=== PATIENT | female | born 1990 | race Caucasian/White ===

== ENCOUNTER 2016-09-10 17:13 | Emergency (ER) | payer OTHER ==
[~2016-09-10] VITALS: Ht 167.6 cm; Wt 100.0 kg
[2016-09-10 17:34] VITALS: BP 129/72; PULSE 87; O2SAT 99
--- NOTE | 2016-09-10 18:10 | ED.REPORT ---
HPI-Psychiatric Illness Date of Service Sep 10, 2016 ED Provider: Keith Ovalle MD History of Present Illness: 26F presents c/o SI (w/plan to overdose on Vicodin or driving car into pole or [place]) that has been more persistant (although now doing better and willing to contract for safety). Sent by Urgent Care. Pt is a 26 year old female with a history of depression, borderline personality disorder, self harmed, and suicidal attempts who presents to the ED complaining of suicidal ideations onset 2 days ago. She c/o associated insomnia (3 hours and less). She denies visual and auditory hallucinations. The pt presented to earlier today and she was referred to come to the ED. She reports that she has had thoughts of overdosing on Vicodin, which she proceeded to flush down the toilet yesterday, and thoughts of driving her car into a pole or [place] [address]. She states that she feels "empty inside and want to feel better. " The pt drinks 2-3 energy drinks every day, but she denies drug use. Per pt, she would go to her parent's house if she was discharged and she does not want to at this point. Pt reports that she recently increased her sleep-aid medication and that she would like to try to decrease it due to her symptoms. She denies the need to be hospitalized. The pt also denies drug and alcohol use. Pt denies seeing a counselor due to being unable to afford the expense. Nursing Notes Stated Complaint: SUICIDAL IDEATION Chief Complaint: Psychiatric Complaint Nursing Notes Reviewed: Yes ([employer] not recociled) Allergies: Coded Allergies: No Known Allergies (Unverified , 09/10/16) General Time Seen by MD: 17:52 Chief Complaint Suicidal ideation Hx Obtained From: Patient Arrived By: Walk-in Onset Occurred: 2 days ago Symptom Duration: Since onset Severity: Current: No pain currently Severity: Maximum: No pain Recent Healthcare: No recent doctor visit, No recent hospitalization Similar Sx Previous: Yes Risk-Psychiatric Illness Suicide Risk Stratification Suicide Risk Factors - Adult: No: Alcohol use, Substance abuse RF Statements: Risk factors reviewed (not predictive) Past Medical History Past Medical History Depression Anxiety Borderline personality disorder hypothyroid Miscarriage Denies: Congestive heart failure, Diabetes mellitus, Hypertension Past Surgical History Denies Smoking History Unknown if Ever Smoker Social History Alcohol Use: Denies alcohol use Drug Use: Denies drug use Other Social History: Good social support Ambulatory Status Independent Review of Systems Psychiatric: Reports: Depression, Insomnia, Suicidal ideation, Denies: Hallucinations, auditory, Hallucinations, visual Complete sys rev & neg: except as marked. Physical Exam Initial Vital Signs Vital Signs (First) Date Time Temp Pulse Resp B/P Pulse Ox O2 Delivery O2 Flow Rate FiO2 09/10/16 17:34 36.6 87 129/72 99 Room Air 09/10/16 22:34 16 Initial VS: Reviewed, Vital signs abnormal Head / Eyes: Atraumatic, Normocephalic Neck: Supple, Full range of motion Respiratory: Breath sounds normal, Clear to auscultation, No respiratory distress Cardiovascular: Regular rate & rhythm, Heart sounds normal, Intact distal pulses Abdomen / GI: Soft, Non-tender Extremities: Vascular intact, Neuro intact Skin: Warm, Dry, No cyanosis General/Constitutional: Awake, Alert, Cooperative Neurologic: Oriented X3, Speech NL, No motor deficits, No sensory deficits Psychiatric: Affect NL, Mood NL, Judgment/insight NL Abnormal Thinking / Perception: Positive: Suicidal, with plan (originally, but suicidality is now resolved, she is willing to contract for safety), Negative: Delusions - grandeur, Delusions - paranoid, Hallucinations, auditory, Homicidal, no plan, Homicidal, with plan, Insight abnormal, Judgment abnormal, Loose associations, Tangential thinking Interpretation & Diagnostics Lab Results Interpretation Result Diagram: 09/10/16184909/10/16 1850 Test 09/10/16 18:50 09/10/16 19:17 White Blood Count 12.2th/mm3 (3.8-10.1) Red Blood Count 4.55mil/mm3 (3.90-5.20) Hemoglobin 12.0g/dL (12.0-15.6) Hematocrit 34.7% (35.0-46.0) Mean Corpuscular Volume 76.3fL (81-100) Mean Corpuscular Hemoglobin 26.4pg (27.0-35.0) Mean Corpuscular Hemoglobin Concent 34.6% (32.0-37.0) Red Cell Distribution Width 13.2% (12.3-15.4) Platelet Count 215bil/L (150-400) Neutrophils (%) (Auto) 75.2% (40-74) Lymphocytes (%) (Auto) 17.5% (14-46) Monocytes (%) (Auto) 6.1% (4-12) Eosinophils (%) (Auto) 0.8% (0-5) Basophils (%) (Auto) 0.2% (0-3) Sodium Level 133mEq/L (134-144) Potassium Level 3.4mEq/L (3.5-5.2) Chloride Level 98mEq/L (97-108) Carbon Dioxide Level 20mmol/L (18-29) Blood Urea Nitrogen 11mg/dL (6-20) Creatinine 0.60mg/dL (0.57-1.00) Estimat Glomerular Filtration Rate 176mL/min (>59) Glucose Level 117mg/dL (60-99) Calcium Level 9.2mg/dL (8.5-10.1) Total Bilirubin 0.3mg/dL (0.0-1.2) Aspartate Amino Transf (AST/SGOT) 18U/L (0-50) Alanine Aminotransferase (ALT/SGPT) 12U/L (0-32) Alkaline Phosphatase 94U/L (25-150) Total Protein 7.3g/dL (6.4-8.4) Albumin 3.7g/dL (3.4-5.0) Thyroid Stimulating Hormone (TSH) 2.760uIU/mL (0.450-4.500) Hold [place] Top Tube Received (Received) Hold Urine Received (Received) Lab Results Interpretation: CBC nonspecific leukocytosis and CMP normal negative U tox negative Alcohol negative Re-Eval/Medical Decision Med Decision/Clinical Course This is a 26-year-old female's a long history of some mild illness, she reports in recent weeks to several bit worsening insomnia that she thinks is from an increased dose and her sertraline, and is now accompanied by some slight worsening and suicidal ideation. 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 She reports she is here she feels safe, she feels better. She does not think she needs hospitalization. She has no history of alcohol or drugs. She is clinically well-appearing, in no distress with a normal exam. She has intact insight and judgment. Labs are normal. Source of Hx: Old records Re-Evaluation/Progress : Time of Eval: 22:27 Re-Evaluation/Progress Note: Pt rechecked. Informed pt of plan for discharge. Pt understands and agrees with plan for discharge. F/U instructions and RTER warnings given. All questions addressed. Counseled Regarding: Diagnosis, Lab results, Need for follow-up, When/why to return to ED Discharge & Departure Impression: Primary Impression: Depression Depression Type: unspecified Qualified Code: F32.9 - Major depressive disorder, single episode, unspecified Additional Impression: Suicidal ideation Disposition: Home Discharge Condition All VS Reviewed: Yes Condition: Stable Additional Instructions: 1. Please follow up with the resources as reviewed by the mental health worker. 2. Keep the upcoming appointment with her primary care provider. 3. I think it is reasonable to reduce your sertraline back to the original dose and see if that helps with the reported insomnia. 4. If you have new or worsening thoughts about hurting herself, called crisis line and or return to the emergency department. Referrals: Tanya Dunn PA-C (PCP) Valencia Evans MD Attestation Portions of this note were transcribed by Angelic Magallanes. I, Dr. Ovalle personally performed the history, physical exam and medical decision-making; I reviewed and confirmed the accuracy of the information in the transcribed note. Signed by: Rashawn Gil, 09/10/16 and 20:55. copies to: Valencia Evans MD; Tanya Dunn PA-C, Matthew F MD Sep 10, 2016 18:10 Angelic Phan Sep 10, 2016 18:23
[2016-09-10 18:57] LABS: BASOPHILS % (AUTO) 0.2 % (0-3); EOSINOPHILS % (AUTO) 0.8 % (0-5); MONOCYTES % (AUTO) 6.1 % (4-12); Mean Corpuscular Hemoglobin 26.4 pg (27.0-35.0); Mean Corpuscular Volume 76.3 fL (81-100); NEUTROPHILS % (AUTO) 75.2 % (40-74); Platelet Count 215 bil/L (150-400)
[2016-09-10 22:34] VITALS: BP 116/81; PULSE 79; RESP 16; O2SAT 96
== END 2016-09-10 22:30 | disposition home or self-care (01) ==
LOC: SED 17:13
DX: F32.9 Major depressive disorder, single episode, unspecified (principal); R45.851 Suicidal ideations; E03.9 Hypothyroidism, unspecified